=== PATIENT | male | born 1990 | race African-American/Black ===

== ENCOUNTER 2016-10-25 05:45 | Emergency (ER) | payer MEDICAID ==
[2016-10-25 09:28] VITALS: BP 118/64
== END 2016-10-25 09:59 | disposition home or self-care (01) ==
LOC: ED 05:45
DX: J20.9 Acute bronchitis, unspecified (principal); J45.909 Unspecified asthma, uncomplicated

== ENCOUNTER 2016-10-27 02:13 | Emergency (ER) | payer MEDICAID ==
[2016-10-27 04:47] VITALS: BP 127/68
== END 2016-10-27 04:47 | disposition home or self-care (01) ==
LOC: ED 02:13
DX: J40 Bronchitis, not specified as acute or chronic (principal); F41.9 Anxiety disorder, unspecified; Z88.8 Allergy status to other drugs, medicaments and biological substances; Z91.018 Allergy to other foods

== ENCOUNTER 2017-03-15 04:24 | Emergency (ER) | payer MEDICAID ==
[~2017-03-15] VITALS: Ht 175.3 cm; Wt 91.2 kg
[2017-03-15 04:48] VITALS: BP 133/107
== END 2017-03-15 06:05 | disposition left against medical advice (07) ==
LOC: ED 04:24
DX: Z53.21 Procedure and treatment not carried out due to patient leaving prior to being seen by health care provider (principal)

== ENCOUNTER 2018-08-27 11:03 | Emergency (ER) | payer MEDICAID ==
[~2018-08-27] VITALS: Ht 175.3 cm; Wt 106.6 kg
[2018-08-27 11:16] VITALS: Ht 175.3 cm; Wt 106.6 kg
[2018-08-27 13:56] VITALS: BP 135/75
== END 2018-08-27 13:56 | disposition home or self-care (01) ==
LOC: ED 11:03
DX: R05 Cough (principal); F17.210 Nicotine dependence, cigarettes, uncomplicated; F41.9 Anxiety disorder, unspecified; Z88.6 Allergy status to analgesic agent; Z88.8 Allergy status to other drugs, medicaments and biological substances; Z91.018 Allergy to other foods; Z71.6 Tobacco abuse counseling
CPT/HCPCS: 99406